=== PATIENT | male | born 1955 | race Caucasian/White ===

== ENCOUNTER → 2020-03-26 07:19 | Outpatient (CLI) | payer OTHER, SELFPAY ==
--- NOTE | 2020-03-26 07:27 | MRI_ITS ---
STUDY: MRI LUMBAR SPINE WITHOUT CONTRAST REASON FOR EXAM: Male, 65 years old. Spondylosis, low back pain,left leg pain TECHNIQUE: Standardized fat and water weighted pulse sequences were obtained in the sagittal and axial planes. COMPARISON: 05/07/2016 FINDINGS: T12-L1: Normal endplates. Normal disc height, hydration and morphology. Normal bilateral facet joints. Normal central canal and bilateral lateral recesses. Normal bilateral intervertebral neural foramina. Normal lumbar lordosis. Mild dextroscoliosis centered at L3. Normal conus medullaris that terminates at the T12/L1. L1-2: Normal endplates. Normal disc height, hydration and morphology. Normal bilateral facet joints. Normal central canal and bilateral lateral recesses. Normal bilateral intervertebral neural foramina. L2-3: Disc desiccation but no disc protrusion, spinal stenosis, or neural foraminal stenosis. L3-4: Mild left facet hypertrophy and ligament flavum hypertrophy Interval improvement in the moderate broad disc protrusion particularly centrally with mild spinal stenosis and mild bilateral lateral recess stenosis but moderate bilateral neural foraminal stenosis with abutment of the exiting L3 nerve roots bilaterally. Associated Modic type II endplate changes. L4-5: Mild bilateral facet hypertrophy and ligament flavum hypertrophy. Interval improvement in the moderate broad disc protrusion particularly in the left paracentral location with moderate spinal stenosis and moderate bilateral lateral recess stenosis with abutment of both L5 nerve roots but resolution of the effacement the left L5 nerve root by the paracentral protrusion and moderate lateral neural foraminal stenosis with abutment of the exiting L4 nerve roots bilaterally. L5-S1: There is no change in the moderate right paracentral and foraminal protrusion which produces mild spinal stenosis, severe right lateral recess stenosis with effacement of the right S1 nerve root and moderate right neural foraminal stenosis with abutment of the exiting right L5 nerve root laterally. Normal visualized sacral ala. Normal visualized paraspinous soft tissue structures. MRI/Spine Lumbar (Routine) IMPRESSION: Mild dextroscoliosis and degenerative disc disease as described above. Disease has improved at L3/L4 and L4/L5 as described above. Electronically Signed: Jacob Truong MD at 10:44 EDT Tel , Service support ,
== END ==
PROVIDERS: PCP Family Medicine; Referring Provider Orthopaedic Surgery; Visit Provider Orthopaedic Surgery
DX: M47.27 Other spondylosis with radiculopathy, lumbosacral region (principal)
CPT/HCPCS: 72148